=== PATIENT | male | born 1955 | race Caucasian/White ===

== ENCOUNTER → 2024-03-27 08:54 | Outpatient (REF) | payer MEDICARE, BC, SELFPAY | LOC: MRI 08:54 | PROVIDERS: ATTENDING PHYSICIAN Anesthesiology | DX: M54.16 Radiculopathy, lumbar region (principal) | CPT/HCPCS: 72148 ==

== ENCOUNTER → 2024-08-04 08:02 | Outpatient (REF) | payer MEDICARE, BC, SELFPAY | LOC: HWRCS 08:02 | PROVIDERS: ATTENDING PHYSICIAN Family Medicine | DX: R60.0 Localized edema (principal) | CPT/HCPCS: 93306 ==